=== PATIENT | female | born 1955 | race Caucasian/White ===

== ENCOUNTER → 2024-01-15 06:50 | Outpatient (REF) | payer MEDICARE, SELFPAY | LOC: HWWDC 06:50 | PROVIDERS: ATTENDING PHYSICIAN Nurse Practitioner Adult Health; FAMILY PHYSICIAN Family Medicine | DX: Z12.31 Encounter for screening mammogram for malignant neoplasm of breast (principal) | CPT/HCPCS: 77063; 77067 ==

== ENCOUNTER → 2024-07-18 14:46 | Outpatient (REF) | payer MEDICARE, SELFPAY | LOC: HWRAD 14:46 | PROVIDERS: ATTENDING PHYSICIAN Nurse Practitioner Adult Health; FAMILY PHYSICIAN Family Medicine | DX: N95.2 Postmenopausal atrophic vaginitis (principal); N95.0 Postmenopausal bleeding | CPT/HCPCS: 76830; 76856 ==

== ENCOUNTER → 2024-11-11 09:30 | Outpatient (REF) | payer MEDICARE, SELFPAY | LOC: CLAB 09:30 | PROVIDERS: ATTENDING PHYSICIAN Obstetrics & Gynecology Gynecology | DX: N95.0 Postmenopausal bleeding (principal); N84.0 Polyp of corpus uteri | CPT/HCPCS: 88305 ==

== ENCOUNTER → 2025-01-09 10:39 | Outpatient (REF) | payer MEDICARE, SELFPAY | LOC: HWRAD 10:39 | PROVIDERS: ATTENDING PHYSICIAN Family Medicine | DX: I10 Essential (primary) hypertension (principal); E78.2 Mixed hyperlipidemia | CPT/HCPCS: 75571 ==

== ENCOUNTER → 2025-02-08 07:31 | Outpatient (REF) | payer MEDICARE, SELFPAY | LOC: HWWDC 07:31 | PROVIDERS: ATTENDING PHYSICIAN Nurse Practitioner Adult Health; FAMILY PHYSICIAN Family Medicine | DX: Z12.31 Encounter for screening mammogram for malignant neoplasm of breast (principal) | CPT/HCPCS: 77063; 77067 ==